=== PATIENT | female | born 1965 | race Caucasian/White ===

== ENCOUNTER 2018-05-22 06:12 | Day surgery (SDC) | payer OTHER ==
[~2018-05-22] VITALS: Ht 165.1 cm; Wt 69.6 kg
[2018-05-22] MEDS ORDERED: no meds (07:41)
[2018-05-22 07:45] VITALS: Ht 165.1 cm; Wt 69.6 kg
[2018-05-22 07:46] VITALS: BP 130/68; PULSE 92; RESP 19
[2018-05-22] MEDS ORDERED: MIDAZOLAM 1 MG/ML 2 ML INJ ONE ×3 (08:34→08:35)
[2018-05-22] MEDS ORDERED: FENTAnyl 50 MCG/ML VIAL ONE (08:35)
[2018-05-22 09:24] VITALS: BP 102/65; RESP 20
== END 2018-05-22 10:58 | disposition home or self-care (01) ==
LOC: GIL 06:12
PROVIDERS: ATTEND Internal Medicine Gastroenterology
DX: Z12.11 Encounter for screening for malignant neoplasm of colon (principal); D12.5 Benign neoplasm of sigmoid colon; K64.8 Other hemorrhoids; K64.4 Residual hemorrhoidal skin tags
CPT/HCPCS: 45380; 88305; J2250; J3010; Z7610